=== PATIENT | female | born 1985 | race Caucasian/White ===

== ENCOUNTER 2019-01-27 07:47 | Inpatient (IN) | payer OTHER ==
[2019-01-27] MEDS ORDERED: Buffered Lidocaine 1% SYRIN* 1 ML/SYRINGE INTRADERM ONE (09:49)
[2019-01-27] MEDS ORDERED: Lactated Ringers 1000 ML Bag* 1,000 ML IV ONE (09:49)
[2019-01-27] MEDS ORDERED: Lactated Ringers 1000 ML Bag* 1,000 ML IV SCH ×2 (10:00→16:00)
[2019-01-27 10:14] LABS: Hematocrit 41 % (35-47); Hemoglobin 13.9 g/dL (12.0-16.0); Mean Corpuscular HGB Conc 34 g/dL (31-36); Mean Corpuscular Hemoglobin 31 pg (27-31); Mean Corpuscular Volume 91 fL (80-97); Mean Platelet Volume 10.8 fL (7.4-10.4); Platelet Count 213 10^3/uL (150-450); Red Blood Count 4.55 10^6 /uL (3.70-4.87); Red Cell Distribution Width 13 % (10-15)
--- NOTE | 2019-01-27 10:19 | HP ---
General Information - Reason for Visit Pt experienced SROM to clear fluid this morning at 0645. She had been previously diagnosed with breech position. On arrival, SROM confirmed by ROM- plus. Dr. Jackman evaluated pt and found infant to be vertex, confirmed by ultrasound. Pt had previously been approved for midwifery care, and now that she is vertex would like to continue to be cared for by midwives. - General Information Maternal Age: 33 Grav: 1 Para: 0 SAB: 0 IEA: 0 Estimated Due Date: 02/03/19 Determined By: LMP Maternal Blood Type and Rh: O Positive - Results this Serology/RPR Result: Non-Reactive Rubella Result: Immune HBsAg Result: Negative HIV Result: Negative GBS Culture Result: Negative Past Medical History Delivery History: See Records - primigravida Pertinent Past Medical History: See Records - migraines Pertinent Past Surgical History: See Records - wisdom tooth extraction and other oral surgery Pertinent Family History: See Records - diabetes, melanoma - Antepartal Records Antepartal Records: Reviewed, Complicated by: - breech position Review of Systems Constitutional: Comfortable CV Complaint: No Respiratory: Shortness of Breath: No Gastrointestinal: No Nausea/Vomiting, Normal Bowel Movement Genitourinary: Leaking Fluid, No Dysuria, No Bleeding Musculoskeletal: No Epigastric Pain, Contractions Neurological: No Headache, No Visual Changes Movement: Normal Exam Allergies/Adverse Reactions: Allergies No Known Allergies Allergy (Verified 01/27/19 08:12) T-98.5, P-72, R-20, BP-123/73 Lab Values - Entire Visit: Laboratory Tests 01/27/19 08:40 Vag Amniotic Fld Detect Positive - Measurements Height: 5 ft 5 in Weight: 68.039 kg Weight in lbs: [id number] Body Mass Index (BMI): 25.0 Pre- Weight: 58.06 kg Weight Gained This : 22 lbs and 0 ozs - Exam Breast: Breast Exam Deferred CVA: No CVA Tenderness Extremities: No Edema Heart: Normal Rhythm/Heart Sounds HEENT: No Significant Findings Lungs: Clear Bilaterally Rectal: Rectal Exam Deferred Reflexes: DTR 2+ Thyroid: No Thyromegaly - Abdominal Exam Abdomen Exam: Non-Tender, Fundal Height Consistent with Dates - Ultrasound/Biophysical Profile Ultrasound Status: Not Done Targeted Exam Findings See L&D Outpatient Visit Provider Note for Findings: N/A Estimated Weight: 7# Cervical Exam: 4cm Effacement: 80% Station: 0 Presenting Part: Vertex Membrane Status: SROM Amniotic Fluid Evaluation: Positive ROM Plus, Clear Bleeding/Discharge: Bloody Show EFM Findings - External Monitor Findings Baseline Heart Rate: 140 External Monitor Findings: Accelerations Present, No Pattern of Variable or Late Decelerations, Variability Moderate, Baseline Stable Contractions: Regular, Mild, Moderate, 45-90 Seconds Contraction Frequency: 3-5 minutes Assessment/Plan - Assessment 33 year old with prior breech presentation, now vertex, with spontaneously ruptured membranes in active labor, no evidence of acidemia, no evidence of chorioamnionitis. - Obstetrical Risk Factors Risk Factors Comment: Recent breech presentation, possible unstable lie - Plan Plan: Admit - Anticipate Vaginal Delivery Plan Comment: Pt prefers unmedicated vaginal . Coping very well with ctx at this time, with support of her and analytical data scientist. Recommend upright positions when able. Encourage PO fluids. Labor support and comfort measures. - Date/Time of Admission Date of Admission: 01/27/19 Time of Admission: 08:52
[2019-01-27 10:43] LABS: ABS Basophils 0.1 10^3/ul (0-0.2); ABS Lymphocytes 1.5 10^3/ul (1.0-4.8); ABS Monocytes 0.6 10^3/ul (0-0.8); ABS Neutrophils 6.9 10^3/ul (1.5-7.7); Eosinophil % 0.3 %; Large Platelets Present; Lymphocyte % 16.4 %; Nucleated Red Blood Cells % 0.1
--- NOTE | 2019-01-27 11:59 | PN ---
Progress Note - Progress Note Date of Service: 01/27/19 SOAP: Subjective: Pt appears much more active, shaking, dry heaves. Dozing in bed between ctx, coping well. Solar Electric Installer and at bedside, supportive. Objective: Cervical exam deferred FHR 130 by auscultation UCs about every 4-5 minutes Temp: 98.5 BP 109/69 Assessment: Pt appears to be making good progression into active labor. No evidence of acidemia or chorioamnionitis. Plan: Can use tub if desired. Labor support and comfort measures. Will check cervix in about an hour or if pt has urge to push. Anticipate .
--- NOTE | 2019-01-27 13:40 | PN ---
Progress Note - Progress Note Date of Service: 01/27/19 SOAP: Subjective: []Pt feeling increased pressure, some urge to push Objective: FHR 130 to doppler UCs Q2-5 minutes Cervix: 8cm/ 100%/ +1/ vtx Assessment: No evidence of acidemia. Making great progress. Plan: Anticipate .
[2019-01-27 14:08] LABS: Urine Benzodiazepine Screen None Detected (None Detect); Urine Opiates Screen None Detected (None Detect)
[2019-01-27] MEDS ORDERED: Oxytocin in LR* 20 UNITS/1,000 ML BAG IVPB ONE (15:02)
[2019-01-27] MEDS ORDERED: Glycerin ADULT SUPP PR PRN (15:54)
[2019-01-27] MEDS ORDERED: Acetaminophen TAB* 325 MG PO PRN (15:54)
[2019-01-27] MEDS ORDERED: Witch Hazel PAD* JAR TOPICAL PRN (15:54)
[2019-01-27] MEDS ORDERED: Oxytocin in LR* 20 UNITS/1,000 ML BAG IVPB SCH (16:00)
--- NOTE | 2019-01-27 16:18 | PROCNOTE ---
[facility] OB: Delivery Note - Delivery A Date of : 01/27/19 Time of : 14:55 [place] Sex: Male Weight at : 3.14 kg Score 1 Minute: 9 Score 5 Minutes: 9 Gestational Age in Weeks and Days at Delivery: 39 Weeks and 0 Days Delivery Method: Spontaneous Vaginal Labor: Spontaneous Did Patient attempt ?: N/A, No Previous Amniotic Fluid: Clear Estimated Blood Loss: 400 Anesthesia/Analgesia: None Delivered By: Teresa Lantigua - Nursery Level of Nursery: Regular/Bedside - Perineum Perineal Injury: Perineal Laceration, 2nd Degree Perineal Injury Comment: also left labial laceration Perineal Repair: By Delivering Practioner - Events Delivery Events of Note: Pitocin Only After Delivery - Additional Delivery Notes Additional Delivery Notes: Pt arrived in spontaneous labor following SROM to clear fluid. had been in the breech position and pt had been scheduled for , but on arrival was evaluated by Dr. Jackman and baby was found to be in vertex position. Pt opted to go forward with vaginal with corporate statistical financial analyst. Pt's labor progressed quickly. She utilized position changes, labor support and hydrotherapy for pain relief. Eventually she progressed to full dilation and began to push spontaneously. Pt pushed with good effort and steady descent. Eventually brought infant to and requested to be assisted into squatting position. Pt birthed the head, direct OA, then shoulders guided out with gentle traction on next push. cried immediately, passed up to pt 's chest while she was assisted to lie down. After cord pulsation ceased cord clamped x2 and cut by infant's father. Placenta soon followed with maternal push and gentle cord traction. Fundal massage performed and Pitocin started at 150 cc/ hr, bleeding minimal after initial gush with placenta. Examination of the perineum revealed small second degree perineal laceration and left labial laceration. Repair performed with Vicryl 3-0 and 4-0 absorbable suture resulting in good hemostasis and tissue approximation. Examination of the placenta revealed accessory lobe, appeared intact. Pt and stable at this time. Anticipate normal course.
[2019-01-27] MEDS: Ibuprofen TAB* 600 MG PO PRN (17:12)
[2019-01-27] MEDS: Dibucaine 1% 28.35 GM TUBE PR PRN (17:13)
[2019-01-28] MEDS: Docusate CAP* 100 MG PO SCH ×4 (01:57→20:33)
[2019-01-28] MEDS: Ibuprofen TAB* 600 MG PO PRN ×4 (01:57→23:51)
[2019-01-28] MEDS ORDERED: Ferrous Gluconate TAB* 324 MG TAB PO SCH (09:00)
[2019-01-28 10:26] LABS: ABS Basophils 0.1 10^3/ul (0-0.2); ABS Lymphocytes 2.5 10^3/ul (1.0-4.8); ABS Monocytes 1.1 10^3/ul (0-0.8); ABS Neutrophils 13.9 10^3/ul (1.5-7.7); Hematocrit 36 % (35-47); Lymphocyte % 14.3 %; Mean Corpuscular HGB Conc 33 g/dL (31-36); Mean Corpuscular Hemoglobin 31 pg (27-31); Mean Corpuscular Volume 92 fL (80-97); Mean Platelet Volume 10.4 fL (7.4-10.4); Nucleated Red Blood Cells % 0.1; Platelet Count 228 10^3/uL (150-450); Red Blood Count 3.91 10^6 /uL (3.70-4.87); Red Cell Distribution Width 14 % (10-15); White Blood Count 17.6 10^3/uL (3.5-10.8)
[2019-01-28] MEDS: Dibucaine 1% 28.35 GM TUBE PR PRN (20:33)
[2019-01-29 07:59] VITALS: BP 124/69
[2019-01-29] MEDS: Docusate CAP* 100 MG PO SCH ×2 (08:03→13:35)
[2019-01-29] MEDS: Ibuprofen TAB* 600 MG PO PRN ×2 (08:03→13:35)
== END 2019-01-29 15:45 | disposition home or self-care (01) | DRG 560 ==
LOC: MCHOBOUT 07:47 → MCHOB 08:52
PROVIDERS: ADMIT Midwife; ATTEND Midwife
PROC: 10E0XZZ Delivery of Products of Conception, External Approach (ICD-10-PCS; principal; 2019-01-27)
PROC: 0KQM0ZZ Repair Perineum Muscle, Open Approach (ICD-10-PCS; 2019-01-27)
DX: O77.0 Labor and delivery complicated by meconium in amniotic fluid (principal); Z37.0 Single live birth; O70.1 Second degree perineal laceration during delivery; Z3A.39 39 weeks gestation of pregnancy
CPT/HCPCS: 36415; 76815; 80307; 84112; 85025; 86850; 86900; 86901; A9270-GY